=== PATIENT | male | born 1960 | race Caucasian/White ===

== ENCOUNTER 2023-04-16 09:29 | Outpatient (OUT) | payer OTHER, SELFPAY ==
--- NOTE | 2023-04-16 10:10 | CT_ITS ---
The [address] [address] Patient Name: DEBBIE ROJAS MRN: [id number] date: 1960 Sex: M Assigned Patient Location: CT Current Patient Location: Accession/Order Number: [id number] Exam Date: 04/16/2023 10:05 Report Date: 04/17/2023 07:39 At the request of: FAIZAN ROY Procedure: CT chest wo con EXAMINATION: CT chest wo con HISTORY: Lung Nodule R91.8 COMPARISON: 01/03/2023 TECHNIQUE: Multi-planar CT images were created with IV contrast. Axial, Coronal, and Sagittal images. Dose reduction techniques were achieved by using automated exposure control and/or adjustment of mA and/or kV according to patient size and/or use of iterative reconstruction technique. FINDINGS: LUNGS: Again demonstrated is a 1.6 x 1.0 cm ill-defined nodular density in the right upper lobe best seen on axial image #41 with several smaller adjacent nodules. The overall size and configuration is stable accounting for differences in slice selection. No new pulmonary nodule or mass PLEURA: No mass, effusion, or pneumothorax. VASCULATURE: No abnormality. JAY: No mass or adenopathy. MEDIASTINUM: No mass or adenopathy. CARDIAC: No enlargement, pericardial thickening, or significant calcification. AORTA: No aneurysm or dissection. CHEST WALL: No mass or axillary adenopathy. BONES: No bone lesion or fracture. LIMITED ABDOMEN: No suspicious findings. Limited images of the upper abdomen. OTHER: Negative. CT/CT chest wo con IMPRESSION: Stable ill-defined right upper lobe nodule, nonspecific. 6 month follow-up recommended as this is only been observed for 3 months Electronically authenticated by: SERGEY STEINER Date: 04/17/2023 07:39
[2023-04-16 11:49] LABS: Alanine Aminotransferase 21 U/L (16-63); Albumin Globulin Ratio 1.4; Albumin Level 4.3 g/dL (3.4-5.0); Alkaline Phosphatase 48 U/L (46-116); Anion Gap 12.7; Aspartate Amino Transferase 17 U/L (15-37); BUN Creatinine Ratio 17.1; Bilirubin Total 0.8 mg/dL (0.2-1.0); Calcium 9.1 mg/dL (8.5-10.1); Carbon Dioxide 25.4 mmol/L (21.0-32.0); Chloride 105 mmol/L (98-107); Chol HDL Ratio 2.9; Cholesterol 170 mg/dL (<=200); Estimated GFR (African America >60 (>=60); Estimated GFR (Non-African Ame >60 (>=60); Glucose 133 mg/dL (74-106); HDL Cholesterol 58 mg/dL (40-60); LDL Cholesterol Calculated 96.4 mg/dL; Potassium 4.1 mmol/L (3.5-5.1); Sodium 139 mmol/L (136-145); Total Protein 7.3 g/dL (6.4-8.2); Triglycerides 78 mg/dL (<=150); VLDL CHOLESTEROL 15.6 mg/dL
== END 2023-04-16 09:30 | disposition home or self-care (01) ==
LOC: CT 09:29
PROVIDERS: PCP Nurse Practitioner Family; Visit Provider Nurse Practitioner Family
DX: R91.8 Other nonspecific abnormal finding of lung field (principal); E78.5 Hyperlipidemia, unspecified
CPT/HCPCS: 36415; 71250; 80053; 80061

== ENCOUNTER 2023-10-27 08:44 | Outpatient (OUT) | payer OTHER, SELFPAY ==
--- NOTE | 2023-10-27 | CT_ITS ---
The [address] [address] Patient Name: DEBBIE ROJAS MRN: [id number] date: 1960 Sex: M Assigned Patient Location: CT Current Patient Location: CT Accession/Order Number: [id number] Exam Date: 10/27/2023 09:16 Report Date: 10/29/2023 09:35 At the request of: FAIZAN ROY Procedure: CT chest wo con EXAM: CT chest wo con. HISTORY: Lung nodules R91.8 COMPARISON: CT chest study dated 04/16/2023. TECHNIQUE: CT chest study was performed without the use of intravenous contrast. Multiple axial images were obtained. Reformatted coronal and sagittal images were obtained and reviewed. FINDINGS: No evidence of mediastinal, hilar or axillary lymphadenopathy. Atherosclerotic calcification within portions of the thoracic aortic arch. No evidence of thoracic aortic aneurysm or leak. Mild coronary artery calcinations are noted. Visualized thyroid gland appears grossly unremarkable. Mild COPD. Previously noted ill-defined nodular density in the right upper lobe measuring approximately 1.6 x 1.0 cm is again identified and appear similar to the prior exam. Finding noted on series 4 axial image 39. No obvious interval lung parenchymal mass or infiltrate. Areas of minimal reticular density in the lingular region of the left upper lobe and the left lower lobe similar to the prior study compatible with minimal chronic fibrotic changes. No significant pleural thickening. No evidence of pleural effusion. Chest wall appears grossly intact. Minimal degenerative changes about the dorsal spine. CT/CT chest wo con IMPRESSION: 1. CT chest study demonstrates stable ill-defined right upper lobe nodular density as described. 2. Mild COPD. Minimal chronic fibrotic changes on the left as described. 3. Follow-up CT chest study in 12-18 months is suggested to assess stability. Electronically authenticated by: ALDO QUILSE Date: 10/29/2023 09:35
== END 2023-10-27 08:45 | disposition home or self-care (01) ==
PROVIDERS: PCP Nurse Practitioner Family; Visit Provider Nurse Practitioner Family
DX: R91.8 Other nonspecific abnormal finding of lung field (principal)
CPT/HCPCS: 71250

== ENCOUNTER 2024-03-22 13:30 | Emergency (ER) | payer OTHER, SELFPAY ==
[2024-03-22 13:37] VITALS: BP 153/89; PULSE 99; TEMP 36.8; O2SAT 97; BMI 18.9
--- OUTSIDE RECORDS SUMMARY | 2024-03-22 13:37 | XMS_ITS | CCD ---
Author Organization [facility] Care Team Providers Care Lens Examiner Name Role Phone Ray Brannon Unavailable Donna Liz Unavailable MILDRED ROY Admitting Unavailable MILDRED ROY Attending Unavailable MILDRED ROY Consulting Unavailable MILDRED ROY Primary Care Unavailable MILDRED ROY Admitting Unavailable MILDRED ROY Attending Unavailable MILDRED ROY Primary Care Unavailable DR SUSY NAVARRO Consulting Unavailable MILDRED ROY Consulting Unavailable MILDRED ROY Admitting Unavailable MILDRED ROY Attending Unavailable MILDRED ROY Primary Care Unavailable Mildred Berrios Unavailable Medications Current Medications Medication Drug Class(es) Dates Sig (Normalized) Sig (Original) [id number] 200 actuat albuterol 0.09 mg/actuat metered dose inhaler (2 sources) beta2-Adrenergic Agonist Start: 08-08-2023 take 2 puff(s) by inhalation four times daily as needed Albuterol Sulfate HFA 108 (90 Base) MCG/ACT 2 puffs Inhalation 4 times a day prn Aug, Active Start: 03-02-2022 take 2 puff(s) by in halation every four to six hours as needed Albuterol Sulfate HFA 108 (90 Base) MCG/ACT 2 puffs as needed Inhalation every 4-6 hours for 14 days Mar, Active brompheniramine maleate 0.4 mg/ml / dextromethorphan hydrobromide 2 mg/ml / pseudoephedrine hydrochloride 6 mg/ml oral solution (1 source) alpha-Adrenergic Agonist, Uncompetitive H-qxctdy-K-aspartate Receptor Antagonist, Sigma-1 Agonist Start: 03-02-2022 take 10 mL by mouth every six hours Kbxuttbwb-Wmqnigyi-ZO 30-2-10 MG/5ML 10 mL Orally every 6 hours for 5 days Mar, Active doxycycline hyclate 100 mg oral tablet (1 source) Tetracycline-class Drug Start: 08-08-2023 take 1 tablet by mouth every twelve hours Doxycycline Hyclate 100 MG 1 tablet Orally Twice a day for 10 day(s) Aug, Active predniSONE 20 mg oral tablet (1 source) Start: 08-08-2023 take 1 tablet by mouth every twelve hours predniSONE 20 MG 1 tablet Orally bid for 5 day(s) Aug, Active Completed/Discontinued Medications Medication Drug Class(es) Dates Sig (Normalized) Sig (Original) {1 (ascorbic acid 7540 MG / polyethylene glycol 3350 68804 MG / potassium chloride 1200 MG / sodium ascorbate 65085 MG / sodium chloride 3200 MG Powder for Oral Solution) / 1 (polyethylene glycol 3350 625212 MG / potassium chloride 1000 MG / sodium chloride 2000 MG / sodium sulfate 9000 MG Powder for Oral Solution) } Pack [Plenvu] (1 source) Osmotic Laxative, Vitamin C Start: 02-15-2021 Plenvu 140 GM dose 1 pouch at 4pm, dose 2 pouch A & B at 11pm Orally BID for 1 days [id number] PCN: [id number] GROUP:[id number] ID:[id number] January, Not-Taking omeprazole 40 mg delayed release oral capsule (3 sources) Proton Pump Inhibitor Start: 12-30-2020 take 1 capsule by mouth every twelve hours Omeprazole 40 MG 1 CAPSULE Orally TWICE A DAY for 30 day(s) Dec, Not-Taking Problems Active Problems Problem Classification Problem Date Documented Da te Episodic/Chronic Abdominal pain (6 sources) Indigestion; Translations: [Epigastric pain] Episodic Chronic obstructive pulmonary disease and bronchiectasis (1 source) Bronchitis, not specified as acute or chronic Episodic Diabetes mellitus without complication (1 source) Other abnormal glucose; Translations: [OTHER ABNORMAL GLUCOSE] Onset: 3 Episodic Esophageal disorders (4 sources) Gastroesophageal reflux disease; Translations: [Gastro-esophageal reflux disease without esophagitis] Onset: 2 Resolved: 2 Chronic Other gastrointestinal disorders (3 sources) Ulceration of intestine; Translations: [Ulcer of intestine] Episodic Other lower respiratory disease (3 sources) Cough; Translations: [Cough] Episodic Other nutritional; endocrine; and metabolic disorders (3 sources) Weight loss; Translations: [Abnormal weight loss] Episodic Other nutritional; endocrine; and metabolic disorders (3 sources) Loss of appetite; Translations: [Anorexia] Episodic Other screening for suspected conditions (not mental disorders or infectious disease) (2 sources) Encounter for screening for malignant neoplasm of prostate; Translations: [Encounter for screening for malignant neoplasm of rectum] Onset: 3 Episodic Other upper respiratory infections (2 sources) Acute upper respiratory infection, unspecified Onset: 2 Resolved: 2 Episodic Residual codes; unclassified (3 sources) Early satiety; Translations: [Early satiety] Episodic Substance-related disorders (6 sources) Nicotine dependence, cigarettes, uncomplicated; Translations: [Smoker] Onset: 3 Chronic Past or Other Problems Problem Classification Problem Date Documented Da te Episodic/Chronic Other gastrointestinal disorders (1 source) Ulcer of intestine Onset: 03-28-2022 Resolved: 03-28-2022 Episodic Other nutritional; endocrine; and metabolic disorders (1 source) Abnormal weight loss Onset: 03-28-2022 Resolved: 03-28-2022 Episodic Unclassified (1 source) Cough R05.9 Onset: 03-02-2022 Resolved: 03-02-2022 Unclassified (1 source) Contact with and (suspected) exposure to covid-19 Z20.822 Results Test Name Value Interpretation Reference Range Facility COVID + FLU Quick Testingon 08-08-2023 SARS-CoV-2 (COVID-19) RNA TIFFANY+probe Ql (Unsp spec) Negative [facility] Other COVID + FLU Quick Testing Negative [facility] Other CT LUNG CANCER SCREENINGon 0 01-03-2023 CT LUNG CANCER SCREENING EXAMINATION: CT LUNG CANCER SCREENING HISTORY: Tobacco dependence caused by cigarettes COMPARISON: CT chest 12/04/2020 TECHNIQUE: Axial, Coronal, and Sagittal images were created without the administration of IV contrast material. Dose reduction techniques were achieved by using automated exposure control and/or adjustment of mA and/or kV according to patient size and/or use of iterative reconstruction technique. FINDINGS: LUNGS: 6 mm irregular opacity/nodule with several adjacent 2-3 mm nodules within anterior segment of right upper lobe adjacent the chest wall. Minimal emphysematous changes. PLEURA: No mass, effusion, or pneumothorax. VASCULATURE: No abnormality. JAY: No mass or pathologic adenopathy. MEDIASTINUM: No mass or pathologic adenopathy. CARDIAC: No enlargement, pericardial thickening, or significant calcification. AORTA: No aneurysm or dissection. CHEST WALL: No mass or axillary adenopathy BONES: No bone lesion or fracture. LIMITED ABDOMEN: No suspicious findings. Limited images of the upper abdomen. OTHER: Negative. IMPRESSION: 1. Lung-RADS Category 4A- Suspicious. Findings for which additional diagnostic testing and/ or tissue sampling is recommended. 3 month LDCT; PET/CT may be used when there is a >= 8 mm solid component. 2. New collection of small nodules within right upper lobe since prior study. Follow-up CT chest in 3 months is recommended to document stability. Electronically authenticated by: SUSY NAVARRO Date: 2023-01-03 08:42 Normal [facility] OCC BLD IMMUNO SCREENon -0 OCCULT BLOOD Negative Normal NEGATIVE [facility] Comment on above: Performed By: #### O BSCRN #### [facility] [address] [address] [address] Armida Cortes INSULINon 01-01-2023 Insulin 7.8 uIU/mL Normal 2.6-24.9 [facility] Comment on above: Performed By: #### I NSULIN #### [facility] [address] [address] [address] Armida Cortes CBC AUTO DIFFon 12-30-2022 BASO # 0.1 103/ul Normal 0.0-0.1 [facility] Comment on above: Performed By: #### C BC #### [facility] [address] [address] [address] Armida Cortes Basophils/100 WBC (Bld) 1.1 % Normal 0.2-2.0 [facility] Comment on above: Performed By: #### C BC #### [facility] [address] [address] [address] Armida Cortes EO # 0.2 103/ul Normal 0.0-0.7 [facility] Comment on above: Performed By: #### C BC #### [facility] [address] [place] [address] Dr. Armida Cortes Eosinophils/100 WBC (Bld) 2.7 % Normal 0.9-7.0 [facility] Comment on above: Performed By: #### C BC #### [facility] [address] [place] [address] Dr. Armida Cortes Erythrocyte distribution width (RBC) [Ratio] 12.9 % Normal 11.0-15.0 [facility] Comment on above: Performed By: #### C BC #### [facility] [address] [place] [address] Dr. Armida Cortes Hematocrit (Bld) [Volume fraction] 47.7 % Normal 42.0-54.0 [facility] Comment on above: Performed By: #### C BC #### [facility] [address] [place] [address] Dr. Armida Cortes Hemoglobin (Bld) [Mass/Vol] 15.5 g/dL Normal 14.0-18.0 [facility] Comment on above: Performed By: #### C BC #### [facility] [address] [place] [address] Dr. Armida Cortes IG # 0.02 10e3/ul Normal 0.00-0.03 [facility] Comment on above: Performed By: #### C BC #### [facility] [address] [place] [address] Dr. Armida Cortes IG % 0.2 % Normal 0.0-0.5 [facility] Comment on above: Performed By: #### C BC #### [facility] [address] [place] [address] Dr. Armida Cortes LYMPH # 1.9 103/ul Normal 1.2-3.8 [facility] Comment on above: Performed By: #### C BC #### [facility] [address] [place] [address] Dr. Armida Cortes Lymphocytes/100 WBC (Bld) 22.8 % Normal 20.5-60.0 [facility] Comment on above: Performed By: #### C BC #### [facility] [address] [place] [address] Dr. Armida Cortes MANUAL DIFF REQ NO Normal [facility] Comment on above: Performed By: #### C BC #### [facility] [address] [place] [address] Dr. Armida Cortes MCH (RBC) [Entitic mass] 30.1 pg Normal 25.9-34.0 [facility] Comment on above: Performed By: #### C BC #### [facility] [address] [place] [address] Dr. Armida Cortes MCHC (RBC) [Mass/Vol] 32.5 g/dL Normal 29.9-35.2 [facility] Comment on above: Performed By: #### C BC #### [facility] [address] [place] [address] Dr. Armida Cortes MCV (RBC) [Entitic vol] 92.6 fL Normal 80.0-94.0 [facility] Comment on above: Performed By: #### C BC #### [facility] [address] [place] [address] Dr. Armida Cortes MONO # 0.5 103/ul Normal 0.3-0.8 [facility] Comment on above: Performed By: #### C BC #### [facility] [address] [place] [address] Dr. Armida Cortes Monocytes/100 WBC (Bld) 6.1 % Normal 1.7-12.0 [facility] Comment on above: Performed By: #### C BC #### [facility] [address] [place] [address] Dr. Armida Cortes NEUT # 5.5 103/ul Normal 1.4-6.5 [facility] Comment on above: Performed By: #### C BC #### [facility] [address] [place] [address] Dr. Armida Cortes Neutrophils/100 WBC (Bld) 67.1 % Normal 43.0-75.0 [facility] Comment on above: Performed By: #### C BC #### [facility] [address] [address] [address] Armida Cortes Platelet mean volume (Bld) [Entitic vol] 9.1 fL Critically low 9.5-13.5 [facility] Comment on above: Performed By: #### C BC #### [facility] [address] [place] [address] Dr. Armida Cortes PLT 264 103/ul Normal 150-450 [facility] Comment on above: Performed By: #### C BC #### [facility] [address] [address] [address] Armida Cortes RBC 5.15 106/ul Normal 4.70-6.10 [facility] Comment on above: Performed By: #### C BC #### [facility] [address] [place] [address] Dr. Armida Cortes WBC 8.3 103/ul Normal 4.0-11.0 [facility] Comment on above: Performed By: #### C BC #### [facility] [address] [place] [address] Dr. Armida Cortes GLYCOHEMOGLOBIN A1Con 2022 ADA RECOMMENDATION SEE BELOW Normal [facility] Comment on above: Result Comment: ADA RECOMMENDED LIMIT 4.0 - 6.0 ADA THERAPEUTIC TARGET < 7.0 ACTION SUGGESTED > 7.0 Performed By: #### A 1C #### [facility] [address] [place] [address] Dr. Armida Cortes Glucose [Mass/Vol] 111 mg/dL Normal [facility] Comment on above: Performed By: #### A 1C #### [facility] [address] [place] [address] Dr. Armida Cortes HbA1c (Bld) [Mass fraction] 5.5 % Normal 4.5-6.2 [facility] Comment on above: Performed By: #### A 1C #### [facility] [address] [place] [address] Dr. Armida Cortes LIPID PROFILEon 12-30-2022 CHOL-HDL RATIO NORM SEE BELOW Normal [facility] Comment on above: Result Comment: 3.3 - 4.4 LOW RISK 4.4 - 7.1 AVERAGE RISK 7.1 - 11.0 MODERATE RISK >11.0 HIGH RISK Performed By: #### C MP, LIPID, URIC #### [facility] [address] [address] [address] Armida Cortes Cholesterol [Mass/Vol] 227 mg/dL Critically high <=200 [facility] Comment on above: Performed By: #### C MP, LIPID, URIC #### [facility] [address] [address] [address] Armida Cortes Cholesterol in HDL [Mass/Vol] 66 mg/dL Critically high 40-60 [facility] Comment on above: Performed By: #### C MP, LIPID, URIC #### [facility] [address] [address] [address] Armida Cortes Cholesterol in LDL [Mass/Vol] 152.2 mg/dL Normal [facility] Comment on above: Performed By: #### C MP, LIPID, URIC #### [facility] [address] [place] [address] Dr. Armida Cortes Cholesterol.total/C holesterol in HDL [Mass ratio] 3.4 {ratio} Normal [facility] Comment on above: Performed By: #### C MP, LIPID, URIC #### [facility] [address] [address] [address] Armida Cortes HDL NORMAL > or = 60 mg/dl - LO W CARDIOVASCULAR RISK <40 mg/dl - HIGH CARDIOVASCULAR RISK Normal [facility] Comment on above: Performed By: #### C MP, LIPID, URIC #### [facility] [address] [address] [address] Armida Cortes LDL CALC NORMAL SEE BELOW Normal [facility] Comment on above: Result Comment: <100 mg/dl OPTIMAL 100 - 129 mg/dl NEAR OR ABOVE OPTIMAL 130 - 159 mg/dl BORDERLINE HIGH 160 - 189 mg/dl HIGH >190 mg/dl VERY HIGH Performed By: #### C MP, LIPID, URIC #### [facility] [address] [address] [address] Armida Cortes Triglyceride [Mass/Vol] 44 mg/dL Normal <=150 [facility] Comment on above: Performed By: #### C MP, LIPID, URIC #### [facility] [address] [place] [address] Dr. Armida Cortes VLDL CALC 8.8 mg/dL Normal [facility] Comment on above: Performed By: #### C MP, LIPID, URIC #### [facility] [address] [place] [address] Dr. Armida Cortes PROF 14(COMP METB)on 023 Albumin [Mass/Vol] 4.4 g/dL Normal 3.4-5.0 [facility] Comment on above: Performed By: #### C MP, LIPID, URIC #### [facility] [address] [place] [address] Dr. Armida Cortes Albumin/Globulin [Mass ratio] 1.5 {ratio} Normal [facility] Comment on above: Performed By: #### C MP, LIPID, URIC #### [facility] [address] [place] [address] Dr. Armida Cortes ALP [Catalytic activity/Vol] 54 U/L Normal 46-116 [facility] Comment on above: Performed By: #### C MP, LIPID, URIC #### [facility] [address] [place] [address] Dr. Armida Cortes ALT [Catalytic activity/Vol] 26 U/L Normal 16-63 [facility] Comment on above: Performed By: #### C MP, LIPID, URIC #### [facility] [address] [place] [address] Dr. Armida Cortes Anion gap [Moles/Vol] 11.4 mmol/L Normal [facility] Comment on above: Performed By: #### C MP, LIPID, URIC #### [facility] [address] [place] [address] Dr. Armida Cortes AST [Catalytic activity/Vol] 19 U/L Normal 15-37 [facility] Comment on above: Performed By: #### C MP, LIPID, URIC #### [facility] [address] [place] [address] Dr. Armida Cortes Bilirubin [Mass/Vol] 0.4 mg/dL Normal 0.2-1.0 [facility] Comment on above: Performed By: #### C MP, LIPID, URIC #### [facility] [address] [address] [address] Armida Cortes Calcium [Mass/Vol] 9.6 mg/dL Normal 8.5-10.1 [facility] Comment on above: Performed By: #### C MP, LIPID, URIC #### [facility] [address] [place] [address] Dr. Armida Cortes Chloride [Moles/Vol] 105 mmol/L Normal 98-107 [facility] Comment on above: Performed By: #### C MP, LIPID, URIC #### [facility] [address] [place] [address] Dr. Armida Cortes CO2 [Moles/Vol] 28.2 mmol/L Normal 21.0-32.0 [facility] Comment on above: Performed By: #### C MP, LIPID, URIC #### [facility] [address] [place] [address] Dr. Armida Cortes Creatinine [Mass/Vol] 1.06 mg/dL Normal 0.70-1.30 [facility] Comment on above: Performed By: #### C MP, LIPID, URIC #### [facility] [address] [place] [address] Dr. Armida Cortes EGFR-AF SPANISH >60 Normal >=60 [facility] Comment on above: Performed By: #### C MP, LIPID, URIC #### [facility] [address] [place] [address] Dr. Armida Cortes EGFR-NON AF SPANISH >60 Normal >=60 [facility] Comment on above: Performed By: #### C MP, LIPID, URIC #### [facility] [address] [place] [address] Dr. Armida Cortes Globulin (S) [Mass/Vol] 3.0 g/dL Normal [facility] Comment on above: Performed By: #### C MP, LIPID, URIC #### [facility] [address] [address] [address] Armida Cortes Glucose [Mass/Vol] 104 mg/dL Normal 74-106 [facility] Comment on above: Performed By: #### C MP, LIPID, URIC #### [facility] [address] [place] [address] Dr. Armida Cortes Potassium [Moles/Vol] 4.6 mmol/L Normal 3.5-5.1 [facility] Comment on above: Performed By: #### C MP, LIPID, URIC #### [facility] [address] [place] [address] Dr. Armida Cortes Protein [Mass/Vol] 7.4 g/dL Normal 6.4-8.2 [facility] Comment on above: Performed By: #### C MP, LIPID, URIC #### [facility] [address] [place] [address] Dr. Armida Cortes Sodium [Moles/Vol] 140 mmol/L Normal 136-145 [facility] Comment on above: Performed By: #### C MP, LIPID, URIC #### [facility] [address] [address] [address] Armida Cortes Urea nitrogen [Mass/Vol] 23.0 mg/dL Critically high 7.0-18.0 [facility] Comment on above: Performed By: #### C MP, LIPID, URIC #### [facility] [address] [place] [address] Dr. Armida Cortes Urea nitrogen/Creatinine [Mass ratio] 21.7 mg/mg Normal [facility] Comment on above: Performed By: #### C MP, LIPID, URIC #### [facility] [address] [place] [address] Dr. Armida Cortes URIC ACID SERUMon 12-30-2022 Urate [Mass/Vol] 5.5 mg/dL Normal 3.5-7.2 [facility] Comment on above: Performed By: #### C MP, LIPID, URIC #### [facility] [address] [place] [address] Dr. Armida Cortes COVID Quick Testingon 06-02- 2022 Result Negative [facility] Other C-Reactive Proteinon 021 C-Reactive Protein 0.5 mg/dL Normal 0.0-1.0 [facility] Comment on above: Order Comment: Reaso n for Exam Ulcer of small intestine Result Comment: PERF ORMED BY: [place] [address] PATHOLOGIST RIGGER ARJUN VENEGAS M.D. Performed By: #### C RP, ESR #### [address] #### IBD DIAG #### [facility] , Erythrocyte Sedimentation Ra kumar 02-21-2021 ESR (Bld) [Velocity] 8 mm/h Normal 0-19 [facility] Comment on above: Order Comment: Reaso n for Exam Ulcer of small intestine Result Comment: PERF ORMED BY: [place] [address] PATHOLOGIST RIGGER ARJUN VENEGAS M.D. Performed By: #### C RP, ESR #### [address] #### IBD DIAG #### [facility] , IBD SGI Diagn[employer]icon 021 Specimen Status Normal . [facility] Comment on above: Order Comment: Reaso n for Exam Ulcer of small intestine Result Comment: [place] monge lab report sent via fax. Performed at: 7[facility] - [employer] [address] [place], [place] [id number] Container Filler: Darrel Hodge MD, Phone: [phone] PERFORMED BY: [place] [address] PATHOLOGIST RIGGER ARJUN VENEGAS M.D. Performed By: #### C RP, ESR #### [place] [address] [place] #### IBD DIAG #### [facility] , Nawaf 02-21-2021 L --- Specimen: [id number] Received: 02/21/21 Status: ARIEL Mccarty Num: [id number] Spec Type: Surgical Subm Dr: Ray Brannon MD Tissues: A Colon Biopsy (TERMINAL ILEUM) Procedures: HE Stain/2, Gross/Micro L4 Patient Age/Sex Location Account Attending Physician Kuldeep Rojas/Oz [id number] Ray Brannon MD SPEC NUM: [id number] RECD: 02/21/21 STATUS: ARIEL MCCARTY NUM: [id number] TIA: 02/21/21 [facility] DR: Ray Brannon MD ENTERED: 02/21/21 [facility] DR: SPEC TYPE: Surgical DEPT: [facility] BY: [id number] ORDERED: HE Stain/2, Gross/Micro L4 ORDERED: HE Stain/2, Gross/Micro L4 Pathological Diagnosis Terminal ileum, biopsy: Small bowel mucosa with no significant histopathology. No evidence of active ileitis identified. Clinical Information Weight loss, ulcer small bowel Gross Description Received in formalin labeled with the patient's name, number and terminal ileum rule out Crohn's are multiple pat-pink tissue fragments aggregating 0.6 x 0.5 x 0.2 cm. Entirely submitted in one cassette labeled A1. (/) Microscopic Description Two H E stained slides are reviewed. Microscopic examination is performed. CPT Codes 49690 Specimen: [id number] Received: 02/21/21 Status: ARIEL Maganaradha Num: [id number] Spec Type: Surgical Subm Dr: Ray Brannon MD Tissues: A Colon Biopsy (TERMINAL ILEUM) Procedures: HE Stain/2, Gross/Micro L4 Patient: Kuldeep Rojas [id number] (Continued) Signed (signature on file) Han Lopez MD 02/22/21 1114 Normal [facility] Calprotectin, Fecalon 2020 Calprotectin, Fecal 117 Normal 0-120 [facility] Comment on above: Order Comment: Reaso n for Exam Ulcer of small intestine Result Comment: Conc entration Interpretation Follow-Up <16 - 50 ug/g Normal None >50 -120 ug/g Borderline Re-evaluate in 4-6 weeks >120 ug/g Abnormal Repeat as clinically indicated Performed at: - [address] [id number] Container Filler: Deann Boswell MD, Phone: [phone] PERFORMED BY: [facility] [address] [place] [address] PATHOLOGIST RIGGER ARJUN VENEGAS M.D. Performed By: #### C ALPROTECT #### [facility] , [place] 01-12-2021 L --- Specimen: [id number] Received: 01/12/21 Status: ARIEL Mccarty Num: [id number] Spec Type: Surgical Subm Dr: Ray Brannon MD Tissues: A Small Intestine - Biopsy/Polyp (SMALL BOWEL BX) B Stomach - Biopsy/Polyp (STOMACH BX) Procedures: HE Stain/4, Gross/Micro L4/2 Patient Age/Sex Location Account Attending Physician Kuldeep Rojas/[facility] [id number] Ray Brannon MD SPEC NUM: [id number] RECD: 01/12/21 STATUS: ARIEL MCCARTY NUM: [id number] TIA: 01/12/21- [facility] DR: Ray Brannon MD ENTERED: 01/12/21 [facility] DR: ERIC TYPE: Surgical DEPT: S ORDERED: HE Stain/4, Gross/Micro L4/2 ORDERED: HE Stain/4, Gross/Micro L4/2 Pathological Diagnosis A. Small bowel, biopsy: - Duodenal mucosa with no significant pathologic findings. - No villous atrophy or intraepithelial lymphocytosis identified. B. Stomach, biopsy: - Gastric mucosa with mild chronic gastritis and focal intestinal metaplasia. - H. pylori stain is negative for microorganisms. Clinical Information Weight loss Gross Description A. Received in formalin labeled with the patient's name, number and biopsy small bowel are 3 pat tissue fragments, 0.1-0.3 cm. Entirely submitted in one cassette labeled A1. (/YJ) B. Received in formalin labeled with the patient's name, number and stomach biopsies are 2 pat tissue fragments, 0.2 cm and 0.3 cm. Entirely submitted in one cassette labeled B1. (SM/YJ) Specimen: Received: 01/12/21 Status: ARIEL Lul Num: [id number] Spec Type: Surgical Subm Dr: Ray Brannon MD Tissues: A Small Intestine - Biopsy/Polyp (SMALL BOWEL BX) B Stomach - Biopsy/Polyp (STOMACH BX) Procedures: HE Stain/4, Gross/Micro L4/2 Patient: Kuldeep Rojas [id number] (Continued) Specimen: Received: 01/12/21 (Continued) Signed (signature on file) Bree Covington MD 01/13/21 1441 Specimen: [id number] Received: 01/12/21 Status: ARIEL Mccarty Num: [id number] Spec Type: Surgical Subm Dr: Ray Brannon MD Tissues: A Small Intestine - Biopsy/Polyp (SMALL BOWEL BX) B Stomach - Biopsy/Polyp (STOMACH BX) Procedures: HE Stain/4, Gross/Micro L4/2 Patient: Kuldeep Rojas [id number] (Continued) Specimen: Received: 01/12/21 (Continued) Microscopic Description A. Two glass slides with H E stained material have been examined. The microscopic findings support the above pathologic diagnosis. B. Two glass slides with H E stained material and one IHC stained slide have been examined. The microscopic findings support the above pathologic diagnosis. The use of one or more reagents in the above tests is regulated as an analyte specific reagent (ASR). The performance characteristics were determined by the Laboratory of [facility]. Immunohistochemistry assays have not been validated on decalcified tissue. Results should be interpreted with caution given the possibility of false negative results on decalcified specimens. They have not been cleared by the US Food and Drug Administration. The FDA has determined that such clearance or approval is not necessary. CPT Codes 17950?2, 57870 Specimen: [id number] Received: 01/12/21 Status: ARIEL Lul Num: [id number] Spec Type: Surgical Subm Dr: Ray Brannon MD Tissues: A Small Intestine - Biopsy/Polyp (SMALL BOWEL BX) B Stomach - Biopsy/Polyp (STOMACH BX) Procedures: HE Stain/4, Gross/Micro L4/2 Patient: Kuldeep Rojas [id number] (Continued) Signed (signature on file) (more content not included)... Normal [facility] SARS-CoV-2 (COVID-19) RNA TIFFANY+probe Ql (Unsp spec) Negative Normal Negative [facility] Comment on above: Order Comment: Healt hcare Worker?: N Result Comment: Refe rence: Negative Testing for SARS-CoV-2 by RT-PCR This test was developed and its performance characteristics determined by [employer] and validated at the [facility]. This test has not been FDA cleared or approved. This test has been authorized by FDA under an Emergency Use Authorization (EUA). This test has been validated in accordance with the FDA's Guidance Document (Policy for Diagnostics Testing in Laboratories Certified to Perform High Complexity Testing under CLIA prior to Emergency Use Authorization for Coronavirus Disease-2019 during the Public Health Emergency) issued on January 01, 2020. This test is only authorized for the duration of time the declaration that circumstances exist justifying the authorization of the emergency use of in vitro diagnostic tests for detection of SARS-CoV-2 virus and/or diagnosis of COVID-19 infection under section 564(b)(1) of the Act, 21 U.S.C. 360bbb-3(b)(1), unless the authorization is terminated or revoked sooner. PERFORMED BY: [place] [address] PATHOLOGIST RIGGER ARJUN VENEGAS M.D. Performed By: #### C OVID-19 [facility] #### [place] [id number] [facility] Vital Signs Date Time Vital Sign Value Performing Clinician Facility 08-08-2023 09:00-0500 Body height 167.64 cm Mildred Berrios Other [facility] Other 08-08-2023 09:00-0500 Body mass index (BMI) [Ratio] 17.27 kg/m2 Mildred Berrios Other [facility] Other 08-08-2023 09:00-0500 Body temperature 98.8 [degF] Mildred Berrios Other [facility] Other 08-08-2023 09:00-0500 Body weight 48.54 kg Mildred Berrios Other [facility] Other 08-08-2023 09:00-0500 Diastolic blood pressure 89 mm[Hg] Mildred Berrios Other [facility] Other 08-08-2023 09:00-0500 Respiratory rate 19 /min Mildred Berrios Other [facility] Other 08-08-2023 09:00-0500 SaO2% (BldA) [Mass fraction] 97 % Mildred Berrios Other [facility] Other 08-08-2023 09:00-0500 Systolic blood pressure 123 mm[Hg] Mildred Berrios Other [facility] Other 03-28-2022 10:00-0400 Body height 167.64 cm Ray Brannon Other [facility] Other 03-28-2022 10:00-0400 Body mass index (BMI) [Ratio] 17.91 kg/m2 Ray Brannon Other [facility] Other 03-28-2022 10:00-0400 Body weight 50.35 kg Rya Brannon Other [facility] Other 03-28-2022 10:00-0400 Diastolic blood pressure 97 mm[Hg] Ray Brannon Other [facility] Other 03-28-2022 10:00-0400 Systolic blood pressure 141 mm[Hg] Ray Brannon Other [facility] Other 03-02-2022 11:25-0400 Body height 167.64 cm Donna Liz Other [facility] Other 03-02-2022 11:25-0400 Body mass index (BMI) [Ratio] 18.88 kg/m2 Donna Liz Other [facility] Other 03-02-2022 11:25-0400 Body temperature 97.5 [degF] Donna Liz Other [facility] Other 03-02-2022 11:25-0400 Body weight 53.07 kg Donna Liz Other [facility] Other 03-02-2022 11:25-0400 Respiratory rate 18 /min Donna Liz Other [facility] Other 03-02-2022 11:25-0400 SaO2% (BldA) [Mass fraction] 98 % Donna Liz Other [facility] Other Encounters Encounter Date Encounter Type Care Provider Facility Start: 08-08-2023 End: 08-08-2023 ambulatory Mildred Berrios Other [facility] Other Start: 08-08-2023 Office outpatient visit 15 minutes Mildred Berrios [facility] Start: 01-05-2023 Encounter for genera l adult medical examination without abnormal findings MILDRED KIRILL [facility] Start: 01-03-2023 ambulatory MILDRED ROY Facility: [facility] Start: 01-03-2023 End: 01-04-2023 ambulatory MILDRED ROY Facility:[facility] Start: 12-30-2022 End: 12-31-2022 ambulatory MILDRED ROY Facility:[facility] Start: 12-30-2022 End: 12-31-2022 Encounter for general adult medical examination without abnormal findings MILDRED ROY Facility:[facility] Start: 03-28-2022 End: 03-28-2022 ambulatory Ray Brannon Other [facility] Other Start: 03-28-2022 Patient encounter procedure Ray Brannon [facility] Start: 03-02-2022 End: 03-02-2022 ambulatory Donna Liz Other [facility] Other Start: 03-02-2022 Office outpatient visit 25 minutes Donna Liz [facility] Procedures Date Procedure Procedure Detail Performing Clinician Start: 12-30-2022 PSA screening MILDRED TRUJILLO Comment on above: Performed By: #### P [facility] #### [facility] [address] [place] [address] Dr. Armida Cortes Payers Date Payer Category Payer Private Health Insurance [id number] 1960 Unknown [id number] 1960 Unknown [id number] 1960 Unknown [id number] Social History Date Type Detail Facility Unknown if ever smoked [facility] Other Sex Assigned At Sex Assigned At Bir th [facility] Other Evaluation note 08-08-2023 Note Date & Type Note Facility 08-08-2023 Evaluation note Encounter Date Diagnosis Assessment Notes Aug, Contact with and (suspected) exposure to covid-19 (ICD-10 - Z20.822) Aug, Bronchitis (ICD-10 - J40) Acute bronchitis home care material was printed Aug, Smoker (ICD-10 - F17.200) Aug, Viral upper respiratory illness (ICD-10 - J06.9) [facility] Other Evaluation note 03-28-2022 Note Date & Type Note Facility 03-28-2022 Evaluation note Encounter Date Diagnosis Assessment Notes Mar, GERD (gastroesopha geal reflux disease) (ICD-10 - K21.9) Encouraged pt to follow up with PCP. Referral sent. Mar, Ulcer of small intestine (ICD-10 - K63.3) Mar, Weight loss (ICD-10 - R63.4) [facility] Other Evaluation note 03-02-2022 Note Date & Type Note Facility 03-02-2022 Evaluation note Encounter Date Diagnosis Assessment Notes Mar, Cough (ICD-10 - R05.9) Mar, Viral URI (ICD-10 - J06.9) Advised patient that COVID antigen test was negative today. Advised patient that will treat as viral URI, althrough symptoms are also consistent with COPD exacerbation. Patient does not have history of COPD, but does report that he had a lung scan completed with PCP who stated that he might be in early stages of COPD. Advised patient that he would benefit from follow up appointment with PCP to further discuss treatment options. Will send in rx of Albuterol Inhaler to use in meantime and rx of Bromfed for symptom management. Supportive care as directed, increase fluids and rest, Tylenol/Motrin as directed, cool mist humidifier, throat lozenges. Discussed infection control practices such as good hand washing and mask wearing. Patient to follow up with PCP if sx persist or worsen despite treatment. Immediate eval for SOB, difficulty, chest pain, fevers that do not break with antipyretic or any other concerning symptoms as reviewed on patient education handout. Patient verbalizes understanding and is agreeable to treatment plan. Patient left in stable condition [facility] Other History general Narrative - Reported Note Date & Type Note Facility History general Narrative - Reported Type Surgical History Skin cancer Hospitalization History bleeding ulcer per pt [facility] Other Summary Purpose Family History No Family History Records FoundNo Family History Records Found Advance Directives No Advanced Directives Records FoundNo Advanced Directives Records Found Reason for Referral Reason * 04/04 establis care with new PCP Diagnosis 1 GERD (gastroesophage al reflux disease) (K21.9) Referral Organization [facility] Referring Provider First Name Ray Referring Provider Last Name Clovis Referring Provider Specialty Gastroenter ology Referred Organization Unknown Facility Referred Provider Shaikh Naqvi Referred Provider Specialty Internal Med icine Referral Priority Routine General Notes Joyce Orellana 0 03/28/2022 11:04:27 AM > Faxed to Dr. Naqvi as patient lives in [place]. Additional Source Comments (unrecognized sect ion and content) No Status Records FoundNo Status Records Found INFORMATION SOURCE (unrecogn ized section and content) DATE CREATED AUTHOR 10/15/2021 [facility] DATE CREATED AUTHOR AUTHOR'S ORGANIZ ATION 01/09/2023 [facility] REASON FOR VISIT (unrecogniz ed section and content) PT HERE FOR ROUTINE ONE YEAR FOLLOW UP GERD, WEIGHT LOSS AND SMALL BOWEL ULCERSRED IMPALA, CONGESTION, COUGH, WHEEZING, H/Asore throat, cough, congestion, thought it was a cold FOR RECORDS PERTAINING TO PATIENTS WHO ARE OR HAVE BEEN ENROLLED IN A CHEMICAL DEPENDENCY/SUBSTANCEABUSE PROGRAM, SOME INFORMATION MAY BE OMITTED. This clinical summary was aggregated from multiple sources. Caution should be exercised in using it in the provision of clinical care. This summary normalizes information from multiple sources, and as a consequence, information in this document may materially change the coding, format and clinical context of patient data. In addition, data may be omitted in some cases. CLINICAL DECISIONS SHOULD BE BASED ON THE PRIMARY CLINICAL RECORDS. [employer] provides no warranty or guarantee of the accuracy or completeness of information in this document.
--- NOTE | 2024-03-22 14:07 | ED.GENADUL1 ---
HPI HPI - General Adult General Chief complaint: Abdominal Pain Stated complaint: BACK PAIN Time Seen by Provider: 03/22/24 14:07 Source: patient Mode of arrival: walk-in Limitations: no limitations History of Present Illness HPI narrative: This patient is here complaining of right flank pain. The pain does not radiate down his back buttock or leg. There is no full paresthesias tingling numbness or weakness. He has not had previous back problems or back surgery. He has not had any problems urinating such as frequency urgency or hematuria. 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 He is not on any antibiotics. He has not had any trauma or injury. He was little bit worried about having a perforated ulcer because it felt similar that many many many years ago when he had a perforated ulcer. He has not had any abdominal surgeries. He has not had vomiting. He did have a little bit of loose stool today. He has not seen any blood in the stool. Related Data Home Medications ?Medication ?Instructions ?Recorded ?Confirmed amoxicillin 500 mg capsule 500 mg PO TID 03/22/24 03/22/24 Allergies Allergy/AdvReac Type Severity Reaction Status Date / Time No Known Drug Allergies Allergy Verified 03/22/24 13:36 Opioid HPI Opioid Management Most Recent Opioid Data: Last ED Pain Assessment 03/22/24 16:01 Exam Narrative Exam Narrative: Well-hydrated well-nourished gentleman moves about comfortably with no apparent discomfort. He is relaxed and not having any pain. In a sitting position straight leg raising test is negative. Kneel to chin is normal. Deep tendon reflexes at patella and Achilles are normal. His extensor houses longus function is normal. There is no sensory deprivation is neurovascular examination extremities is normal. Examining his back there is no evidence of shingles or other lesions he does have previous incisions from cancer skin removal. Examination of his belly. In the supine position he has no tenderness guarding masses rebound or rigidity. No tenderness at McBurney's point Coronado sign is negative there is no hepatosplenomegaly. Constitutional Vital Signs, click to edit/add: Last Vital Signs Temp 98.2 F 03/22/24 13:37 Pulse 99 H 03/22/24 13:37 Resp 16 03/22/24 13:37 BP 153/89 H 03/22/24 13:37 Pulse Ox 97 03/22/24 13:37 O2 Del Method Room Air 03/22/24 13:37 Course Vital Signs Vital signs: Vital Signs Temperature 98.2 F 03/22/24 13:37 Pulse Rate 99 H 03/22/24 13:37 Respiratory Rate 16 03/22/24 13:37 Blood Pressure 153/89 H 03/22/24 13:37 Pulse Oximetry 97 03/22/24 13:37 Oxygen Delivery Method Room Air 03/22/24 13:37 Temperature 98.2 F 03/22/24 13:37 Pulse Rate 99 H 03/22/24 13:37 Respiratory Rate 16 03/22/24 13:37 Blood Pressure 153/89 H 03/22/24 13:37 Pulse Oximetry 97 03/22/24 13:37 Oxygen Delivery Method Room Air 03/22/24 13:37 Medical Decision Making MDM Narrative Medical decision making narrative: Because the location of the pain I felt because there could be multiple organ involvement causing his symptoms a CT would be the best modality to rule out any emergency medical condition. Fortunately he has basic chemistries CBC urinalysis and CAT scan are all normal there is no evidence of pneumonia or pulmonary disease kidney disease or other acute emergency medical surgical conditions on his CT results this must just be simple musculoskeletal problem. This was explained to the patient in detail Discharge Plan Discharge Stand Alone Forms: Portal Instructions Chief Complaint: Abdominal Pain Clinical Impression: Abdominal wall pain in right flank Patient Disposition: Home, Self-Care Time of Disposition Decision: 16:55 Print Language: Upper Sorbian Additional Instructions: May use cfup-cym-qexrgal analgesics or NSAIDs on a short-term basis Referrals: FAIZAN ROY [Primary Care Provider] - 1 week
--- NOTE | 2024-03-22 14:09 | CT_ITS ---
The [address] [address] Patient Name: DEBBIE ROJAS MRN: [id number] date: 1960 Sex: M Assigned Patient Location: ER Current Patient Location: ER Accession/Order Number: [id number] Exam Date: 03/22/2024 15:35 Report Date: 03/22/2024 16:48 At the request of: SCAR ANDRE Procedure: CT abdomen pelvis w con CT ABDOMEN/PELVIS WITH IV CONTRAST. INDICATION: Right flank pain. COMPARISON: There are no other studies available for comparison. TECHNIQUE: Contiguous axial images were obtained from the lung bases to the pelvic floor following the intravenous administration of contrast. Coronal and sagittal reformations are provided. FINDINGS: LOWER LUNGS: Clear. LIVER/BILIARY TREE: No mass. No intrahepatic ductal dilatation. GALLBLADDER: No significant gallbladder wall thickening. No radiopaque stone. CBD: Normal CBD. SPLEEN: Normal in size. PANCREAS: No acute findings. No peripancreatic fluid or inflammation. No pancreatic duct dilatation. No discrete mass. ADRENALS: Normal. KIDNEYS: No hydronephrosis. No radiopaque calculus. STOMACH AND BOWEL: Decompressed stomach. No dilated bowel loops. There is mild diffuse small bowel thickening. APPENDIX: Normal appendix. PERITONEAL CAVITY: No fluid. No fat stranding. ABDOMINAL WALL: No subcutaneous stranding. No subcutaneous fluid collection. LYMPH NODES: No mesenteric or retroperitoneal lymphadenopathy by CT criteria. ABDOMINAL AORTA: No aneurysm. PELVIS: No acute abnormality. MUSCULOSKELETAL: No acute osseous abnormality. CT/CT abdomen pelvis w con IMPRESSION: Mild diffuse small bowel thickening. Correlate for enteritis.. Electronically authenticated by: JATIN GUZMAN Date: 03/22/2024 16:48
[2024-03-22] MEDS: 0.9 % SODIUM CHLORIDE 1,000 ML 100 ML IV (14:15)
[2024-03-22 14:27] LABS: Basophils Absolute Auto 0.1 10^3/uL (0.0-0.1); Basophils Percent Auto 0.9 % (0.2-2.0); Eosinophils Absolute Auto 0.2 10^3/uL (0.0-0.7); Eosinophils Percent Auto 1.9 % (0.9-7.0); Hematocrit 40.5 % (42.0-54.0); Hemoglobin 13.6 g/dL (14.0-18.0); Immature Granulocytes Abs Auto 0.03 10^3/uL (0.00-0.03); Immature Granulocytes Pct Auto 0.3 % (0.0-0.5); Lymphocytes Percent Auto 20.9 % (20.5-60.0); Mean Corpuscular HGB Conc 33.6 g/dL (29.9-35.2); Mean Corpuscular Hemoglobin 30.6 pg (25.9-34.0); Mean Corpuscular Volume 91.2 fL (80.0-94.0); Mean Platelet Volume 10.2 fL (9.5-13.5); Monocytes Absolute Auto 0.6 10^3/uL (0.3-0.8); Monocytes Percent Auto 6.6 % (1.7-12.0); Neutrophils Absolute Auto 6.6 10^3/uL (1.4-6.5); Neutrophils Percent Auto 69.4 % (43.0-75.0); Platelet Count 239 10^3/uL (150-450); Red Blood Count 4.44 10^6/uL (4.70-6.10); Red Cell Distribution Width 12.4 % (11.0-15.0); White Blood Count 9.5 10^3/uL (4.0-11.0)
[2024-03-22 14:38] LABS: Alanine Aminotransferase 15 U/L (16-63); Albumin Globulin Ratio 1.3; Albumin Level 3.9 g/dL (3.4-5.0); Alkaline Phosphatase 51 U/L (46-116); Anion Gap 12.2; Aspartate Amino Transferase 13 U/L (15-37); BUN Creatinine Ratio 17.8; Bilirubin Total 0.5 mg/dL (0.2-1.0); Calcium 8.9 mg/dL (8.5-10.1); Carbon Dioxide 24.8 mmol/L (21.0-32.0); Chloride 105 mmol/L (98-107); Estimated GFR (African America >60 (>=60); Estimated GFR (Non-African Ame >60 (>=60); Globulin 2.9 g/dL; Glucose 109 mg/dL (74-106); Sodium 138 mmol/L (136-145); Total Protein 6.8 g/dL (6.4-8.2)
[2024-03-22 14:40] LABS: Lactate/Lactic Acid 0.8 mmol/L (0.4-2.0)
[2024-03-22 14:42] VITALS: BP 130/81; PULSE 81; O2SAT 99
[2024-03-22 15:42] LABS: Bilirubin Urine NEGATIVE (NEGATIVE); Blood Urine NEGATIVE (NEGATIVE); Clarity Urine CLEAR (CLEAR); Color Urine LT. YELLOW (YELLOW); Glucose Urine UA NEGATIVE (NEGATIVE); Ketones Urine NEGATIVE (NEGATIVE); Leukocyte Esterase Urine NEGATIVE (NEGATIVE); Nitrite Urine NEGATIVE (NEGATIVE); Protein Urine NEGATIVE (NEG/TRACE); Urobilinogen Urine 0.2 EU/dL (0.2-1.0)
[2024-03-22 15:43] LABS: Urine Microscopic Indicated NO
[2024-03-22 16:02] VITALS: BP 148/84; PULSE 85; O2SAT 98
[2024-03-22 17:09] VITALS: BP 134/72; PULSE 81; O2SAT 98
== END 2024-03-22 17:12 | disposition home or self-care (01) ==
PROVIDERS: Emergency Provider Emergency Medicine Emergency Medical Services; PCP Nurse Practitioner Family
DX: R10.9 Unspecified abdominal pain (principal)
CPT/HCPCS: 36415; 74177; 80053; 81003; 83605; 83690; 85025; 99285; Q9967

== ENCOUNTER 2024-06-07 08:12 | Outpatient (OUT) | payer OTHER, SELFPAY ==
--- OUTSIDE RECORDS SUMMARY | 2024-06-07 08:15 | XMS_ITS | CCD ---
Author Organization [facility] Care Team Providers Care [employer] Equipment Tender Name Role Phone Ray Brannon Unavailable Donna Liz Unavailable MILDRED ROY Admitting Unavailable MILDRED ROY Attending Unavailable MILDRED ROY Consulting Unavailable MILDRED ROY Primary Care Unavailable MILDRED ROY Admitting Unavailable MILDRED ROY Attending Unavailable IMLDRED ROY Primary Care Unavailable DR SUSY NAVARRO Consulting Unavailable MILDRED ROY Consulting Unavailable MILDRED ROY Admitting Unavailable MILDRED ROY Attending Unavailable MILDRED ROY Primary Care Unavailable Mildred Berrios Unavailable Medications Current Medications Medication Drug Class(es) Dates Sig (Normalized) Sig (Original) [id number] 200 actuat albuterol 0.09 mg/actuat metered dose [...] oral solution (1 source) alpha-Adrenergic Agonist, Uncompetitive H-nxhgiu-J-aspartate Receptor Antagonist, Sigma-1 Agonist Start: 03-02-2022 take 10 mL by mouth every six hours Bjdemyncd-Iofymxdb-TF 30-2-10 MG/5ML 10 mL Orally every 6 [...] acid 7540 MG / polyethylene glycol 3350 75624 MG / potassium chloride 1200 MG / sodium ascorbate 32117 MG / sodium chloride 3200 MG Powder for Oral Solution) / 1 (polyethylene glycol 3350 435600 MG / potassium chloride 1000 MG / sodium chloride 2000 MG / sodium sulfate 9000 MG Powder for Oral Solution) } Pack [Plenvu] (1 source) Osmotic Laxative, Vitamin C Start: 02-15-2021 Plenvu 140 GM dose 1 pouch at 4pm, dose 2 pouch A & B at 11pm Orally BID for 1 days BIN:[id number] PCN: [id number] ID:[id number] January, Not-Taking omeprazole 40 mg delayed release [...] (COVID-19) RNA TIFFANY+probe Ql (Unsp spec) Negative [facility] Other COVID + FLU Quick Testing Negative [facility] Other CT LUNG CANCER SCREENINGon 0 01-03-2023 [...] SUSY NAVARRO Date: 2023-01-03 08:42 Normal [facility] OCC BLD IMMUNO SCREENon -0 OCCULT BLOOD Negative Normal NEGATIVE [facility] Comment on above: Performed By: #### O BSCRN #### [facility] [address] [address] [address] Armida Cortes INSULINon 01-01-2023 Insulin 7.8 uIU/mL Normal 2.6-24.9 [facility] Comment on above: Performed By: #### I NSULIN #### [facility] [address] [address] [address] Armida Cortes CBC AUTO DIFFon 12-30-2022 BASO # 0.1 103/ul Normal 0.0-0.1 [facility] Comment on above: Performed By: #### C BC #### [facility] [address] [address] [address] Armida Cortes Basophils/100 WBC (Bld) 1.1 % Normal 0.2-2.0 [facility] Comment on above: Performed By: #### C BC #### [facility] [address] [address] [address] Armida Cortes EO # 0.2 103/ul Normal 0.0-0.7 [facility] Comment on above: Performed By: #### C BC #### [facility] [address] [place] [address] Dr. Armida Cortes Eosinophils/100 WBC (Bld) 2.7 % Normal 0.9-7.0 [facility] Comment on above: Performed By: #### C BC #### [facility] [address] [place] [address] Dr. Armida Cortes Erythrocyte distribution width (RBC) [Ratio] 12.9 % Normal 11.0-15.0 [facility] Comment on above: Performed By: #### C BC #### [facility] [address] [place] [address] Dr. Armida Cortes Hematocrit (Bld) [Volume fraction] 47.7 % Normal 42.0-54.0 [facility] Comment on above: Performed By: #### C BC #### [facility] [address] [place] [address] Dr. Armida Cortes Hemoglobin (Bld) [Mass/Vol] 15.5 g/dL Normal 14.0-18.0 [facility] Comment on above: Performed By: #### C BC #### [facility] [address] [place] [address] Dr. Armida Cortes IG # 0.02 10e3/ul Normal 0.00-0.03 [facility] Comment on above: Performed By: #### C BC #### [facility] [address] [place] [address] Dr. Armida Cortes IG % 0.2 % Normal 0.0-0.5 [facility] Comment on above: Performed By: #### C BC #### [facility] [address] [place] [address] Dr. Armida Cortes LYMPH # 1.9 103/ul Normal 1.2-3.8 [facility] Comment on above: Performed By: #### C BC #### [facility] [address] [place] [address] Dr. Armida Cortes Lymphocytes/100 WBC (Bld) 22.8 % Normal 20.5-60.0 [facility] Comment on above: Performed By: #### C BC #### [facility] [address] [place] [address] Dr. Armida Cortes MANUAL DIFF REQ NO Normal [facility] Comment on above: Performed By: #### C BC #### [facility] [address] [place] [address] Dr. Armida Cortes MCH (RBC) [Entitic mass] 30.1 pg Normal 25.9-34.0 [facility] Comment on above: Performed By: #### C BC #### [facility] [address] [place] [address] Dr. Armida Cortes MCHC (RBC) [Mass/Vol] 32.5 g/dL Normal 29.9-35.2 [facility] Comment on above: Performed By: #### C BC #### [facility] [address] [place] [address] Dr. Armida Cortes MCV (RBC) [Entitic vol] 92.6 fL Normal 80.0-94.0 [facility] Comment on above: Performed By: #### C BC #### [facility] [address] [place] [address] Dr. Armida Cortes MONO # 0.5 103/ul Normal 0.3-0.8 [facility] Comment on above: Performed By: #### C BC #### [facility] [address] [place] [address] Dr. Armida Cortes Monocytes/100 WBC (Bld) 6.1 % Normal 1.7-12.0 [facility] Comment on above: Performed By: #### C BC #### [facility] [address] [place] [address] Dr. Armida Cortes NEUT # 5.5 103/ul Normal 1.4-6.5 [facility] Comment on above: Performed By: #### C BC #### [facility] [address] [place] [address] Dr. Armida Cortes Neutrophils/100 WBC (Bld) 67.1 % Normal 43.0-75.0 [facility] Comment on above: Performed By: #### C BC #### [facility] [address] [address] [address] Armida Cortes Platelet mean volume (Bld) [Entitic vol] 9.1 fL Critically low 9.5-13.5 [facility] Comment on above: Performed By: #### C BC #### [facility] [address] [place] [address] Dr. Armida Cortes PLT 264 103/ul Normal 150-450 [facility] Comment on above: Performed By: #### C BC #### [facility] [address] [address] [address] Armida Cortes RBC 5.15 106/ul Normal 4.70-6.10 [facility] Comment on above: Performed By: #### C BC #### [facility] [address] [place] [address] Dr. Armida Cortes WBC 8.3 103/ul Normal 4.0-11.0 [facility] Comment on above: Performed By: #### C BC #### [facility] [address] [place] [address] Dr. Armida Cortes GLYCOHEMOGLOBIN A1Con 2022 ADA RECOMMENDATION SEE BELOW Normal [facility] Comment on above: Result Comment: ADA RECOMMENDED LIMIT 4.0 - 6.0 ADA THERAPEUTIC TARGET < 7.0 ACTION SUGGESTED > 7.0 Performed By: #### A 1C #### [facility] [address] [place] [address] Dr. Armida Cortes Glucose [Mass/Vol] 111 mg/dL Normal [facility] Comment on above: Performed By: #### A 1C #### [facility] [address] [place] [address] Dr. Armida Cortes HbA1c (Bld) [Mass fraction] 5.5 % Normal 4.5-6.2 [facility] Comment on above: Performed By: #### A 1C #### [facility] [address] [place] [address] Dr. Armida Cortes LIPID PROFILEon 12-30-2022 CHOL-HDL RATIO NORM SEE BELOW Normal [facility] Comment on above: Result Comment: 3.3 - 4.4 LOW RISK 4.4 - 7.1 AVERAGE RISK 7.1 - 11.0 MODERATE RISK >11.0 HIGH RISK Performed By: #### C MP, LIPID, URIC #### [facility] [address] [address] [address] Armida Cortes Cholesterol [Mass/Vol] 227 mg/dL Critically high <=200 [facility] Comment on above: Performed By: #### C MP, LIPID, URIC #### [facility] [address] [address] [address] Armida Cortes Cholesterol in HDL [Mass/Vol] 66 mg/dL Critically high 40-60 [facility] Comment on above: Performed By: #### C MP, LIPID, URIC #### [facility] [address] [address] [address] Armida Cortes Cholesterol in LDL [Mass/Vol] 152.2 mg/dL Normal [facility] Comment on above: Performed By: #### C MP, LIPID, URIC #### [facility] [address] [place] [address] Dr. Armida Cortes Cholesterol.total/C holesterol in HDL [Mass ratio] 3.4 {ratio} Normal [facility] Comment on above: Performed By: #### C MP, LIPID, URIC #### [facility] [address] [address] [address] Armida Cortes HDL NORMAL > or = 60 mg/dl - LO W CARDIOVASCULAR RISK <40 mg/dl - HIGH CARDIOVASCULAR RISK Normal [facility] Comment on above: Performed By: #### C MP, LIPID, URIC #### [facility] [address] [address] [address] Armida Cortes LDL CALC NORMAL SEE BELOW Normal [facility] Comment on above: Result Comment: <100 mg/dl OPTIMAL 100 - 129 mg/dl NEAR OR ABOVE OPTIMAL 130 - 159 mg/dl BORDERLINE HIGH 160 - 189 mg/dl HIGH >190 mg/dl VERY HIGH Performed By: #### C MP, LIPID, URIC #### [facility] [address] [address] [address] Armida Cortes Triglyceride [Mass/Vol] 44 mg/dL Normal <=150 [facility] Comment on above: Performed By: #### C MP, LIPID, URIC #### [facility] [address] [place] [address] Dr. Armida Cortes VLDL CALC 8.8 mg/dL Normal [facility] Comment on above: Performed By: #### C MP, LIPID, URIC #### [facility] [address] [place] [address] Dr. Armida Cortes PROF 14(COMP METB)on 023 Albumin [Mass/Vol] 4.4 g/dL Normal 3.4-5.[address] [facility] Comment on above: Performed By: #### C MP, LIPID, URIC #### [facility] [address] [place] [address] Dr. Armida Cortes Albumin/Globulin [Mass ratio] 1.5 {ratio} Normal [facility] Comment on above: Performed By: #### C MP, LIPID, URIC #### [facility] [address] [place] [address] Dr. Armida Cortes ALP [Catalytic activity/Vol] 54 U/L Normal 46-116 [facility] Comment on above: Performed By: #### C MP, LIPID, URIC #### [facility] [address] [place] [address] Dr. Armida Cortes ALT [Catalytic activity/Vol] 26 U/L Normal 16-63 [facility] Comment on above: Performed By: #### C MP, LIPID, URIC #### [facility] [address] [place] [address] Dr. Armida Cortes Anion gap [Moles/Vol] 11.4 mmol/L Normal [facility] Comment on above: Performed By: #### C MP, LIPID, URIC #### [facility] [address] [place] [address] Dr. Armida Cortes AST [Catalytic activity/Vol] 19 U/L Normal 15-37 [facility] Comment on above: Performed By: #### C MP, LIPID, URIC #### [facility] [address] [place] [address] Dr. Armida Cortes Bilirubin [Mass/Vol] 0.4 mg/dL Normal 0.2-1.0 [facility] Comment on above: Performed By: #### C MP, LIPID, URIC #### [facility] [address] [address] [address] Armida Cortes Calcium [Mass/Vol] 9.6 mg/dL Normal 8.5-10.[address] [facility] Comment on above: Performed By: #### C MP, LIPID, URIC #### [facility] [address] [place] [address] Dr. Armida Cortes Chloride [Moles/Vol] 105 mmol/L Normal 98-107 [facility] Comment on above: Performed By: #### C MP, LIPID, URIC #### [facility] [address] [place] [address] Dr. Armida Cortes CO2 [Moles/Vol] 28.2 mmol/L Normal 21.0-32.0 [facility] Comment on above: Performed By: #### C MP, LIPID, URIC #### [facility] [address] [place] [address] Dr. Armida Cortes Creatinine [Mass/Vol] 1.06 mg/dL Normal 0.70-1.30 [facility] Comment on above: Performed By: #### C MP, LIPID, URIC #### [facility] [address] [place] [address] Dr. Armida Cortes EGFR-AF TURKMEN >60 Normal >=60 [facility] Comment on above: Performed By: #### C MP, LIPID, URIC #### [facility] [address] [place] [address] Dr. Armida Cortes EGFR-NON AF TURKMEN >60 Normal >=60 [facility] Comment on above: Performed By: #### C MP, LIPID, URIC #### [facility] [address] [place] [address] Dr. Armida Cortes Globulin (S) [Mass/Vol] 3.0 g/dL Normal [facility] Comment on above: Performed By: #### C MP, LIPID, URIC #### [facility] [address] [address] [address] Armida Cortes Glucose [Mass/Vol] 104 mg/dL Normal 74-[address] [facility] Comment on above: Performed By: #### C MP, LIPID, URIC #### [facility] [address] [place] [address] Dr. Armida Cortes Potassium [Moles/Vol] 4.6 mmol/L Normal 3.5-5.1 [facility] Comment on above: Performed By: #### C MP, LIPID, URIC #### [facility] [address] [place] [address] Dr. Armida Cortes Protein [Mass/Vol] 7.4 g/dL Normal 6.4-8.[address] [facility] Comment on above: Performed By: #### C MP, LIPID, URIC #### [facility] [address] [place] [address] Dr. Armida Cortes Sodium [Moles/Vol] 140 mmol/L Normal 136-[address] [facility] Comment on above: Performed By: #### C MP, LIPID, URIC #### [facility] [address] [address] [address] Armida Cortes Urea nitrogen [Mass/Vol] 23.0 mg/dL Critically high 7.0-18.0 [facility] Comment on above: Performed By: #### C MP, LIPID, URIC #### [facility] [address] [place] [address] Dr. Armida Cortes Urea nitrogen/Creatinine [Mass ratio] 21.7 mg/mg Normal [facility] Comment on above: Performed By: #### C MP, LIPID, URIC #### [facility] [address] [place] [address] Dr. Armida Cortes URIC ACID SERUMon 12-30-2022 Urate [Mass/Vol] 5.5 mg/dL Normal 3.5-7.2 [facility] Comment on above: Performed By: #### C MP, LIPID, URIC #### [facility] [address] [place] [address] Dr. Armida Cortes COVID Quick Testingon 06-02- 2022 Result Negative [facility] Other C-Reactive Proteinon 021 C-Reactive Protein 0.5 mg/dL Normal 0.0-1.0 [facility] Comment on above: Order Comment: Reaso n for Exam Ulcer of small intestine Result Comment: PERF ORMED BY: [place] [address] PATHOLOGIST ELECTRON BEAM MACHINE WELDER SETTER ARJUN VENEGAS M.D. Performed By: #### C RP, ESR #### [address] #### IBD DIAG #### [facility] , Erythrocyte Sedimentation Ra kumar 02-21-2021 ESR (Bld) [Velocity] 8 mm/h Normal 0-19 [facility] Comment on above: Order Comment: Reaso n for Exam Ulcer of small intestine Result Comment: PERF ORMED BY: [place] [address] PATHOLOGIST ELECTRON BEAM MACHINE WELDER SETTER ARJUN VENEGAS M.D. Performed By: #### C RP, ESR #### [address] #### IBD DIAG #### [facility] , IBD [facility]GI [employer] 021 Specimen Status Normal . [facility] Comment on above: Order Comment: Reaso n for Exam Ulcer of small intestine Result Comment: Alexandria monge lab report sent via fax. Performed at: 7# - [email or web address] [address] [place], [place] [id number] Necktie Operator [employer] Pieces: Darrel Hodge MD, Phone: [phone] PERFORMED BY: [place] [address] PATHOLOGIST ELECTRON BEAM MACHINE WELDER SETTER ARJUN VENEGAS M.D. Performed By: #### C RP, ESR #### [place] [address] [place] #### IBD DIAG #### [facility] , [place]af 02-21-2021 L --- Specimen: [id number] Received: 02/21/21 Status: ARIEL Mccarty Num: [id number] Spec Type: Surgical Subm Dr: Ray Brannon MD Tissues: A Colon Biopsy (TERMINAL ILEUM) Procedures: HE Stain/2, Gross/Micro L4 Patient Age/Sex Location Account Attending Physician Kuldeep Rojas/Oz [id number] Ray Brannon MD SPEC NUM: [id number] RECD: 02/21/21 STATUS: ARIEL MCCARTY NUM: [id number] TIA: 02/21/[address] [facility] [address]: Ray Brannon MD ENTERED: 02/21/21 [facility] DR: SPEC TYPE: Surgical DEPT: S [facility] BY: [id number] ORDERED: HE Stain/2, Gross/Micro L4 ORDERED: HE [...] reviewed. Microscopic examination is performed. CPT Codes 34798 Specimen: [id number] Received: 02/21/21 Status: ARIEL Maganaradha Num: [id number] Spec Type: Surgical Subm Dr: Ray Brannon MD Tissues: A Colon Biopsy (TERMINAL ILEUM) Procedures: HE Stain/2, Gross/Micro L4 Patient: Kuldeep Rojas [id number] (Continued) Signed (signature on file) Han Lopez MD 02/22/21 1114 Normal [facility] Calprotectin, Fecalon 2020 Calprotectin, Fecal 117 Normal 0-120 [facility] Comment on above: Order Comment: Reaso n for Exam Ulcer of small intestine Result Comment: Conc entration Interpretation Follow-Up <16 - 50 ug/g Normal None >50 -120 ug/g Borderline Re-evaluate in 4-6 weeks >120 ug/g Abnormal Repeat as clinically indicated Performed at: - [facility] [id number] Neck[employer]: Deann Boswell MD, Phone: [phone] PERFORMED BY: [facility] [address] [place] [address] PATHOLOGIST ELECTRON BEAM MACHINE WELDER SETTER ARJUN VENEGAS M.D. Performed By: #### C ALPROTECT #### [facility] , [place] 01-12-2021 L --- Specimen: [id number] Received: 01/12/21 Status: ARIEL Mccarty Num: [id number] Spec Type: Surgical Subm Dr: Ray Brannon MD Tissues: A Small Intestine - Biopsy/Polyp (SMALL BOWEL BX) B Stomach - Biopsy/Polyp (STOMACH BX) Procedures: HE Stain/4, Gross/Micro L4/2 Patient Age/Sex Location Account Attending Physician Kuldeep Rojas/[facility] [id number] Ray Brannon MD SPEC NUM: [id number] RECD: 01/12/21 STATUS: ARIEL MCCARTY NUM: [id number] TIA: 01/12/[address]- [facility] DR: Ray Brannon MD ENTERED: 01/12/21 [facility] [address]: ERIC TYPE: Surgical DEPT: S ORDERED: [...] Specimen: Received: 01/12/21 Status: ARIEL Lul Num: [id number] Spec Type: Surgical Subm Dr: Ray Brannon MD Tissues: A Small Intestine - Biopsy/Polyp (SMALL BOWEL BX) B Stomach - Biopsy/Polyp (STOMACH BX) Procedures: HE Stain/4, Gross/Micro L4/2 Patient: Kuldeep Rojas [id number] (Continued) Specimen: Received: 01/12/21 (Continued) Signed (signature on file) Bree Covington MD 01/13/21 1441 Specimen: [id number] Received: 01/12/21 Status: ARIEL Mccarty Num: [id number] Spec Type: Surgical Subm Dr: Ray Brannon MD Tissues: A Small Intestine - Biopsy/Polyp (SMALL BOWEL BX) B Stomach - Biopsy/Polyp (STOMACH BX) Procedures: HE Stain/4, Gross/Micro L4/2 Patient: Kuldeep Rojas [id number] (Continued) Specimen: Received: 01/12/21 (Continued) Microscopic Description [...] characteristics were determined by the Laboratory of [facility]. Immunohistochemistry assays have not been validated on decalcified tissue. Results should be interpreted with caution given the possibility of false negative results on decalcified specimens. They have not been cleared by the [place] Food and Drug Administration. The FDA has determined that such clearance or approval is not necessary. CPT Codes 18652?2, 04986 Specimen: [id number] Received: 01/12/21 Status: ARIEL Lul Num: [id number] Spec Type: Surgical Subm Dr: Ray Brannon MD Tissues: A Small Intestine - Biopsy/Polyp (SMALL BOWEL BX) B Stomach - Biopsy/Polyp (STOMACH BX) Procedures: HE Stain/4, Gross/Micro L4/2 Patient: Kuldeep Rojas [id number] (Continued) Signed (signature on file) (more content not included)... Normal [facility] COVID[facility] SARS-CoV-2 (COVID-19) RNA TIFFANY+probe Ql (Unsp spec) Negative Normal Negative [facility] Comment on above: Order Comment: Healt hcare Worker?: N Result Comment: Refe rence: Negative Testing for SARS-CoV-2 by RT-PCR This test was developed and its performance characteristics determined by [employer] and validated at the [facility]. This test has not been FDA [...] is terminated or revoked sooner. PERFORMED BY: [place] [address] PATHOLOGIST ELECTRON BEAM MACHINE WELDER SETTER ARJUN VENEGAS M.D. Performed By: #### C OVID-19 [facility] #### [place] [id number] [facility] Vital Signs Date Time Vital Sign Value Performing Clinician Facility 08-08-2023 09:00-0500 Body height 167.64 cm Mildred Berrios Other [facility] Other 08-08-2023 09:00-0500 Body mass index (BMI) [Ratio] 17.27 kg/m2 Mildred Berrios Other [facility] Other 08-08-2023 09:00-0500 Body temperature 98.8 [degF] Mildred Berrios Other [facility] Other 08-08-2023 09:00-0500 Body weight 48.54 kg Mildred Berrios Other [facility] Other 08-08-2023 09:00-0500 Diastolic blood pressure 89 mm[Hg] Mildred Berrios Other [facility] Other 08-08-2023 09:00-0500 Respiratory rate 19 /min Mildred Berrios Other [facility] Other 08-08-2023 09:00-0500 SaO2% (BldA) [Mass fraction] 97 % Mildred Berrios Other [facility] Other 08-08-2023 09:00-0500 Systolic blood pressure 123 mm[Hg] Mildred Berrios Other [facility] Other 03-28-2022 10:00-0400 Body height 167.64 cm Ray Brannon Other [facility] Other 03-28-2022 10:00-0400 Body mass index (BMI) [Ratio] 17.91 kg/m2 Ray Brannon Other [facility] Other 03-28-2022 10:00-0400 Body weight 50.35 kg Ray Brannon Other [facility] Other 03-28-2022 10:00-0400 Diastolic blood pressure 97 mm[Hg] Ray Brannon Other [facility] Other 03-28-2022 10:00-0400 Systolic blood pressure 141 mm[Hg] Ray Brannon Other [facility] Other 03-02-2022 11:25-0400 Body height 167.64 cm Donna Liz Other [facility] Other 03-02-2022 11:25-0400 Body mass index (BMI) [Ratio] 18.88 kg/m2 Donna Liz Other [facility] Other 03-02-2022 11:25-0400 Body temperature 97.5 [degF] Donna Liz Other [facility] Other 03-02-2022 11:25-0400 Body weight 53.07 kg Donna Liz Other [facility] Other 03-02-2022 11:25-0400 Respiratory rate 18 /min Donna Liz Other [facility] Other 03-02-2022 11:25-0400 SaO2% (BldA) [Mass fraction] 98 % Donna Liz Other [facility] Other Encounters Encounter Date Encounter Type Care Provider Facility Start: 08-08-2023 End: 08-08-2023 ambulatory Mildred Berrios Other [facility] Other Start: 08-08-2023 Office outpatient visit 15 minutes Mildred Berrios [facility] Start: 01-05-2023 Encounter for genera l adult medical examination without abnormal findings MILDRED KIRILL [facility] Start: 01-03-2023 ambulatory MILDRED ROY Facility: [facility] Start: 01-03-2023 End: 01-04-2023 ambulatory MILDRED ROY Facility:[facility] Start: 12-30-2022 End: 12-31-2022 ambulatory MILDRED ROY Facility:[facility] Start: 12-30-2022 End: 12-31-2022 Encounter for general adult medical examination without abnormal findings MILDRED ROY Facility:[facility] Start: 03-28-2022 End: 03-28-2022 ambulatory Ray Brannon Other [facility] Other Start: 03-28-2022 Patient encounter procedure Ray Brannon [facility] Start: 03-02-2022 End: 03-02-2022 ambulatory Donna Liz Other [facility] Other Start: 03-02-2022 Office outpatient visit 25 minutes Donna Liz [facility] Procedures Date Procedure Procedure Detail Performing Clinician Start: 12-30-2022 PSA screening MILDRED TRUJILLO Comment on above: Performed By: #### [facility] #### [facility] [address] [place] [address] Dr. Armida Cortes Payers Date Payer Category Payer Private Health Insurance [id number] 1960 Unknown [id number] 1960 Unknown [id number] [id number] 1960 Unknown [id number] [id number] Social History Date Type Detail Facility Unknown if ever smoked [facility] Other Sex Assigned At Sex Assigned At Bir th [facility] Other Evaluation note 08-08-2023 Note Date & Type Note Facility 08-08-2023 Evaluation note Encounter Date Diagnosis Assessment Notes Aug, Contact with and (suspected) exposure to covid-19 (ICD-10 - Z20.822) Aug, Bronchitis (ICD-10 - J40) Acute bronchitis home care material was printed Aug, Smoker (ICD-10 - F17.200) Aug, Viral upper respiratory illness (ICD-10 - J06.9) [facility] Other Evaluation note 03-28-2022 Note Date & Type Note Facility 03-28-2022 Evaluation note Encounter Date Diagnosis Assessment Notes Mar, GERD (gastroesopha geal reflux disease) (ICD-10 - K21.9) Encouraged pt to follow up with PCP. Referral sent. Mar, Ulcer of small intestine (ICD-10 - K63.3) Mar, Weight loss (ICD-10 - R63.4) [facility] Other Evaluation note 03-02-2022 Note Date & [...] treatment plan. Patient left in stable condition [facility] Other History general Narrative - Reported Note Date & Type Note Facility History general Narrative - Reported Type Surgical History Skin cancer Hospitalization History bleeding ulcer per pt [facility] Other Summary Purpose Family History No Family [...] to Dr. Naqvi as patient lives in [place]. Additional Source Comments (unrecognized sect ion and content) No Status Records FoundNo Status Records Found INFORMATION SOURCE (unrecogn ized section and content) DATE CREATED AUTHOR 10/15/2021 [facility] DATE CREATED AUTHOR AUTHOR'S ORGANIZ ATION 01/09/2023 [...] BE BASED ON THE PRIMARY CLINICAL RECORDS. [employer] provides no warranty or guarantee of the accuracy or completeness of information in this document.
[2024-06-07 09:30] LABS: Basophils Absolute Auto 0.1 10^3/uL (0.0-0.1); Basophils Percent Auto 1.2 % (0.2-2.0); Eosinophils Absolute Auto 0.3 10^3/uL (0.0-0.7); Eosinophils Percent Auto 3.8 % (0.9-7.0); Hematocrit 49.4 % (42.0-54.0); Hemoglobin 16.3 g/dL (14.0-18.0); Immature Granulocytes Abs Auto 0.02 10^3/uL (0.00-0.03); Immature Granulocytes Pct Auto 0.2 % (0.0-0.5); Lymphocytes Percent Auto 24.2 % (20.5-60.0); Mean Corpuscular Hemoglobin 30.8 pg (25.9-34.0); Mean Corpuscular Volume 93.2 fL (80.0-94.0); Mean Platelet Volume 9.9 fL (9.5-13.5); Monocytes Absolute Auto 0.6 10^3/uL (0.3-0.8); Monocytes Percent Auto 7.5 % (1.7-12.0); Neutrophils Absolute Auto 5.1 10^3/uL (1.4-6.5); Neutrophils Percent Auto 63.1 % (43.0-75.0); Platelet Count 275 10^3/uL (150-450); Red Cell Distribution Width 12.7 % (11.0-15.0); White Blood Count 8.1 10^3/uL (4.0-11.0)
[2024-06-07 09:42] LABS: Estimated Average Glucose 105 mg/dL; Glycohemoglobin A1C 5.3 % (4.5-6.2)
[2024-06-07 09:56] LABS: Alanine Aminotransferase 20 U/L (16-63); Albumin Globulin Ratio 1.5; Albumin Level 4.4 g/dL (3.4-5.0); Alkaline Phosphatase 54 U/L (46-116); Anion Gap 11.4; Aspartate Amino Transferase 19 U/L (15-37); BUN Creatinine Ratio 15.8; Bilirubin Total 0.7 mg/dL (0.2-1.0); Calcium 9.5 mg/dL (8.5-10.1); Carbon Dioxide 29.1 mmol/L (21.0-32.0); Chloride 104 mmol/L (98-107); Chol HDL Ratio 3.3; Cholesterol 225 mg/dL (<=200); Estimated GFR (African America >60 (>=60); Estimated GFR (Non-African Ame >60 (>=60); Free T3 3.19 pg/mL (2.18-3.98); Globulin 2.9 g/dL; Glucose 107 mg/dL (74-106); HDL Cholesterol 68 mg/dL (40-60); Potassium 4.5 mmol/L (3.5-5.1); Sodium 140 mmol/L (136-145); Thyroid Stimulating Hormone 1.893 uIU/mL (0.358-3.740); Total Protein 7.3 g/dL (6.4-8.2); Triglycerides 92 mg/dL (<=150); Uric Acid 4.8 mg/dL (3.5-7.2); VLDL CHOLESTEROL 18.4 mg/dL
[2024-06-07 09:58] LABS: Prostate Specific Antigen Scrn 1.94 ng/mL (<=4.00)
[2024-06-09 13:07] LABS: Insulin 5.1 uIU/mL (2.6-24.9)
== END 2024-06-07 08:13 | disposition home or self-care (01) ==
PROVIDERS: PCP Nurse Practitioner Family; Visit Provider Nurse Practitioner Family
DX: Z00.00 Encounter for general adult medical examination without abnormal findings (principal)
CPT/HCPCS: 36415; 80053; 80061; 83036; 83525; 83690; 84436; 84443; 84481; 84550; 85025; G0103

== ENCOUNTER 2024-11-11 08:03 | Outpatient (OUT) | payer OTHER, SELFPAY ==
--- NOTE | 2024-11-11 08:06 | CT_ITS ---
[address] [address] Patient Name: DEBBIE ROJAS MRN: [id number] date: 1960 Sex: M Assigned Patient Location: CT Current Patient Location: Accession/Order Number: [id number] Exam Date: 11/11/2024 08:10 Report Date: 11/12/2024 05:06 At the request of: FAIZAN ROY Procedure: CT chest wo con EXAMINATION: CT chest wo con HISTORY: Lung Nodule COMPARISON: CT chest 10/27/2023, 10/17/2022, 12/04/2020 TECHNIQUE: Axial, Coronal, and Sagittal images were created without the administration of IV contrast material. Dose reduction techniques were achieved by using automated exposure control and/or adjustment of mA and/or kV according to patient size and/or use of iterative reconstruction technique. FINDINGS: LUNGS: Improved appearance with mild irregular strandy opacities within anterior right upper lobe at level of aortic arch where there were previously denser, nodular opacities. New 3 mm nodule within posterior medial aspect of left lower lobe superior segment. No acute infiltrates. PLEURA: No mass, effusion, or pneumothorax. VASCULATURE: No abnormality. JAY: No mass or pathologic adenopathy. MEDIASTINUM: No mass or pathologic adenopathy. CARDIAC: No enlargement, pericardial thickening, or pericardial effusion. Coronary Artery calcifications: Coronary calcifications are mild. AORTA: No aneurysm or dissection. CHEST WALL: No mass or axillary adenopathy BONES: No bone lesion or fracture. LIMITED ABDOMEN: No suspicious findings. Limited images of the upper abdomen. OTHER: Negative. CT/CT chest wo con IMPRESSION: 1. Lung-RADS 2- Benign Appearance or Behavior. Nodules with a very low likelihood of becoming a clinically active cancer due to size or lack of growth. Follow-up CT Chest in 1 year. Electronically authenticated by: SUSY NAVARRO Date: 11/12/2024 05:06
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
== END 2024-11-11 08:04 | disposition home or self-care (01) ==
LOC: CT 08:03
PROVIDERS: PCP Nurse Practitioner Family; Visit Provider Nurse Practitioner Family
DX: R91.8 Other nonspecific abnormal finding of lung field (principal)
CPT/HCPCS: 71250